=== PATIENT | male | born 1975 | race Asian ===

== ENCOUNTER 2024-04-24 20:10 | Emergency (ER) | payer OTHER, SELFPAY ==
[2024-04-24 20:12] VITALS: BP 155/96
[2024-04-24 20:31] VITALS: BP 139/91
[2024-04-24 21:00] VITALS: BP 134/86
[2024-04-24 22:00] VITALS: BP 137/91
--- NOTE | 2024-04-24 23:06 | ED.GENMED ---
History of Present Illness
<Patricia Devi NP - Last Filed: 04/26/24 20:18>
General
Chief Complaint: Breathing Problem
Source: patient
Exam Limitations: none
Time Seen by Provider: 04/24/24 21:20
Nursing documentation reviewed up to this point in time: agreed with
History of Present Illness
History of Present Illness:
Patient to ED with complaint of SOB x 2 mos. States his blood pressure is high at times, low at times. Feels tired all the time, sleeping more than usual. Denies fever/chills, recent illness. No n/v/d. No cough. Brought to ED by family for
eval.
Past History
<Patricia Devi NP - Last Filed: 04/26/24 20:18>
Past History
ED Past Medical History: Cancer (Kidney), HTN, Hypercholesterolemia, Hypothyroidism and Other (DVT)
ED Past Surgical History: None and Other (partial left nephrectomy 2022)
Social History
Tobacco: Non-smoker
Alcohol: Occasional
Drug: None
Personal:
Living: with family
Employment: Employed
Family History
Family History: Hypertension
Review of Systems
<Patricia Devi NP - Last Filed: 04/26/24 20:18>
Review of Systems
Allergies reviewed?: Yes
All Other Systems: ROS reviewed and negative except as documented in HPI and ROS
Constitutional: Reports fatigue
EENT: Reports no symptoms
Respiratory: Reports trouble breathing
Cardiac: Reports no symptoms
ABD/GI: Reports no symptoms
: Reports no symptoms
Musculoskeletal: Reports no symptoms
Skin: Reports no symptoms
Neurological: Reports no symptoms
Psychiatric: Reports no symptoms
Phy Exam
<Patricia Devi NP - Last Filed: 04/26/24 20:18>
General Physical Exam
General Presentation: well appearing and no apparent distress
General age: appears stated age
General Skin: warm and dry
General Habitus: normal
General Mental: alert
General Hydration: appears well hydrated
Cardiovascular Exam
Cardiovascular Exam: regular rate/rhythm and no edema
Pulmonary Exam
Pulmonary Exam: lungs clear and no respiratory distress
Gastrointestinal Exam
Gastrointestinal Exam: normal bowel sounds and non tender
Musculoskeletal Exam
Musculoskeletal Exam: full ROM and neuro vasc intact
Skin Exam
Skin Exam: normal color, warm/dry and no rash
Psychiatric Exam
Psychiatric Exam: normal mood/affect
Scores
<Patricia Devi ALTERNATIVE ENERGY TECHNICIAN - Last Filed: 04/26/24 20:18>
Heart Failure Risk
Heart Failure Risk Score: Not Applicable
Course
<Patricia Devi ALTERNATIVE ENERGY TECHNICIAN - Last Filed: 04/26/24 20:18>
Orders/Labs/Results
Orders:
Orders
04/24/24 20:12
Electrocardiogram (*1) Urgent
Reason for Study: Shortness of Breath
EKG- Treatment ONCE
04/24/24 23:00
Alcohol Urgent
BNP [NT-proBNP] Urgent
Complete Blood Count/With Diff Urgent
Comprehensive Metabolic Panel Urgent
D-Dimer Urgent
Troponin I Urgent
04/24/24 23:18
CR Chest - 2 Views Urgent
Comment:
Reason For Exam: SOB
04/24/24 23:28
COVID-19 Antigen Urgent
Source: Nasal Swab
04/25/24 00:19
CT Head W/o Iv Contrast Urgent
Comment:
Reason For Exam: mental status change
04/25/24 00:23
Add On- LAB Urgent
Tests Added?: alcohol- quality
Abnormal Lab Results
04/24/24
23:00
WBC 3.1 L 10^3/uL
(4.8-10.8)
RBC 3.67 L 10^6/uL
(4.70-6.10)
Hct 35.6 L %
(39.0-52.0)
MCV 97.0 H fL
(80.0-94.0)
MCH 35.7 H pg
(27.0-31.0)
Abs Immat Gran (auto) 0.1 H 10^3/uL
(0-0.05)
Immature Gran % 1.6 H %
(0-0.5)
Monocytes % 9.7 H %
(1.7-9.3)
Chloride 114 H mmol/L
(98-107)
Carbon Dioxide 15 L mmol/L
(22-30)
Glucose 125 H mg/dl
(70-99)
Total Protein 6.2 L g/dl
(6.3-8.2)
04/24/24 23:00
04/24/24 23:00
Vital Signs
Initial and Last Documented VS:
Initial Vital Signs
Temp Pulse Resp BP Pulse Ox
97.5 F 93 20 155/96 98
04/24/24 20:12 04/24/24 20:12 04/24/24 20:12 04/24/24 20:12 04/24/24 20:12
Last Documented Vital Signs
Temp Pulse Resp BP Pulse Ox
97.5 F 109 13 110/76 86
04/24/24 20:12 04/25/24 00:32 04/24/24 23:15 04/25/24 01:03 04/25/24 00:39
<Yue Moser, DO - Last Filed: 04/25/24 02:23>
Orders/Labs/Results
Orders:
Orders
04/24/24 20:12
Electrocardiogram (*1) Urgent
Reason for Study: Shortness of Breath
EKG- Treatment ONCE
04/24/24 23:00
Alcohol Urgent
BNP [NT-proBNP] Urgent
Complete Blood Count/With Diff Urgent
Comprehensive Metabolic Panel Urgent
D-Dimer Urgent
Troponin I Urgent
04/24/24 23:18
CR Chest - 2 Views Urgent
Comment:
Reason For Exam: SOB
04/24/24 23:28
COVID-19 Antigen Urgent
Source: Nasal Swab
04/25/24 00:19
CT Head W/o Iv Contrast Urgent
Comment:
Reason For Exam: mental status change
04/25/24 00:23
Add On- LAB Urgent
Tests Added?: alcohol- quality
Abnormal Lab Results
04/24/24
23:00
WBC 3.1 L 10^3/uL
(4.8-10.8)
RBC 3.67 L 10^6/uL
(4.70-6.10)
Hct 35.6 L %
(39.0-52.0)
MCV 97.0 H fL
(80.0-94.0)
MCH 35.7 H pg
(27.0-31.0)
Abs Immat Gran (auto) 0.1 H 10^3/uL
(0-0.05)
Immature Gran % 1.6 H %
(0-0.5)
Monocytes % 9.7 H %
(1.7-9.3)
Chloride 114 H mmol/L
(98-107)
Carbon Dioxide 15 L mmol/L
(22-30)
Glucose 125 H mg/dl
(70-99)
Total Protein 6.2 L g/dl
(6.3-8.2)
04/24/24 23:00
04/24/24 23:00
Vital Signs
Initial and Last Documented VS:
Initial Vital Signs
Temp Pulse Resp BP Pulse Ox
97.5 F 93 20 155/96 98
04/24/24 20:12 04/24/24 20:12 04/24/24 20:12 04/24/24 20:12 04/24/24 20:12
Last Documented Vital Signs
Temp Pulse Resp BP Pulse Ox
97.5 F 109 13 110/76 86
04/24/24 20:12 04/25/24 00:32 04/24/24 23:15 04/25/24 01:03 04/25/24 00:39
<Patricia Devi NP - Last Filed: 04/26/24 20:18>
*Critical Care Note
Total Time (30-74mins, 75-104mins- exclusive of procedures): Not Applicable
<Patricia Devi NP - Last Filed: 04/26/24 20:18>
Update Note
Update Note:
Patient AAOx3 on arrival. Able to give full history of current complaint and PMH. Went to room to discuss lab and xray findings. Sleeping but arousable. Now appears confused. He is cooperative but appears impaired. History of daily alcohol use
(vodka). Will check head CT, alcohol level.
ED Attending Note
<Patricia Devi NP - Last Filed: 04/26/24 20:18>
-
Portions of this chart may have been created with voice recognition software.� Occasional wrong word or��sound alike� substitutions may have occurred due to the inherent limitations of voice recognition software.
<Yue Moser DO - Last Filed: 04/25/24 02:23>
ED Attending Note
Patient seen and examined by attending physician: Yes
I performed a history and physical exam of patient and discussed management with resident, I reviewed resident's note and agree with documented findings and plan of care.: Yes
ED Attending Note:
49-year-old gentleman brought to the family with concern for multiple seemingly unrelated complaints all ongoing for a number of months. Admits to daily alcohol consumption.
Patient is awake and alert, easily distracted but oriented x 3. No focal neurodeficits.
Labs are unremarkable. Alcohol level 78.
CT of the head is unremarkable.
Encouraged to discontinue alcohol use, follow-up with PCP.
Discharge Plan
Departure
Patient Disposition: Home (Routine Discharge)
Date of Disposition: 04/25/24
Time of Disposition: 02:22
Patient with high blood pressure during this ER visit?: No
Condition: Good
Covid-19: Not Applicable
Discharge Problem:
Fatigue, KNIGHT (dyspnea on exertion)
Instructions: Fatigue (DC), Shortness of Breath, Adult ED
Prescriptions:
No Action
escitalopram oxalate 10 MG tablet
10 mg PO DAILY@1800 30 Days Qty: 30 0RF
multivitamin 1 EACH tablet
1 ea PO DAILY
apixaban [Eliquis] 5 MG tablet
5 mg PO DIRECTED
melatonin 5 MG tablet
10 mg PO HS 0RF
benzonatate 100 MG capsule
200 mg PO TIDPRN PRN (Reason: Cough) Qty: 15 0RF
metoprolol succinate 25 MG tablet extended release 24 hr
25 mg PO DAILY Qty: 30 0RF
Rx Instructions:
RESUME AFTER FOLLOW UP WITH PCP
Referrals:
Henry Guzman MD [Family Provider] - Tomorrow
Activity Restrictions/Additional Instructions:
Follow up with your family doctor in the AM. Return to the emergency department immediately for any changes in/worsening of your symptoms.
Interventions
Interventions:
*Risk Screen - Suicide Last Done: 08/25/24 23:14
*General Assessment Last Done: 04/24/24 20:12
*Neglect/Abuse Screening Last Done: 04/24/24 23:14
ED- Fall Risk Assessment Last Done: 04/25/24 02:25
*ED COVID-19 Vaccine History Last Done: 04/24/24 23:14
*Nursing Disposition Last Done: 04/25/24 02:25
ED- Cardiac Assessment Last Done: 04/24/24 23:05
ED- Pulmonary Assessment Last Done: 04/24/24 23:05
Discharge Date and Time
Discharge Date/Time: 04/25/24 02:26
Print Language: SLOVAK
[2024-04-24 23:08] LABS: % Basophils 0.6 % (0-2); % Eosinophils 1.6 % (0-6); % Immature Granulocytes 1.6 % (0-0.5); % Lymphocytes 37.1 % (20.5-51.1); % Monocytes 9.7 % (1.7-9.3); % Neutrophils 49.4 % (42.2-75.2); Absolute Eosinophils 0.1 10^3/uL (0-0.7); Absolute Immature Granulocytes 0.1 10^3/uL (0-0.05); Absolute Lymphocytes 1.2 10^3/uL (1.2-3.4); Absolute Monocytes 0.3 10^3/uL (0.1-0.6); Absolute Neutrophils 1.5 10^3/uL (1.4-6.5); Hematocrit 35.6 % (39.0-52.0); Hemoglobin 13.1 g/dL (13.0-18.0); Mean Corp Hgb Conc. 36.8 g/dL (33.0-37.0); Mean Corpuscular Hgb 35.7 pg (27.0-31.0); Mean Platelet Volume 10.2 fL (7.4-10.4); Nucleated Red Blood Cells % 0 % (-); Platelet Count 156 10^3/uL (130-400); Red Blood Cell Count 3.67 10^6/uL (4.70-6.10); Red Cell Dist. Width 13.6 % (11.5-14.5); White Blood Cell Count 3.1 10^3/uL (4.8-10.8)
[2024-04-24 23:10] VITALS: BMI 35.4
[2024-04-24 23:29] LABS: ALT (SGPT) 19 U/L (0-50); AST (SGOT) 32 U/L (17-59); Albumin 4.2 g/dl (3.5-5.0); Alkaline Phosphatase 48 U/L (38-126); Blood Urea Nitrogen 11 mg/dl (9-20); Calcium 9.5 mg/dl (8.4-10.2); Carbon Dioxide 15 mmol/L (22-30); Chloride 114 mmol/L (98-107); Estimated Creatinine Clearance 83 ml/min; Glucose 125 mg/dl (70-99); Potassium 4.6 mmol/L (3.5-5.1); Sodium 144 mmol/L (135-145); Total Bilirubin 0.6 mg/dl (0.2-1.3); Total Protein 6.2 g/dl (6.3-8.2); eGFR > 60.00
[2024-04-24 23:30] LABS: NT-proBNP < 20.0 pg/ml; Troponin I < 0.012 ng/ml
[2024-04-24 23:32] LABS: D-Dimer < 0.27 ug/mlFEU (0.00-0.50)
[2024-04-24 23:44] LABS: COVID-19 Antigen Negative (Negative)
[2024-04-25 01:03] VITALS: BP 110/76
[2024-04-25 01:04] LABS: Alcohol 78 mg/dl
== END 2024-04-25 02:26 | disposition home or self-care (01) ==
LOC: EMR 20:10
PROVIDERS: Nurse Practitioner; Student in an Organized Health Care Education/Training Program; EMERGENCY PHYSICIAN Emergency Medicine; FAMILY PHYSICIAN Internal Medicine
DX: R53.83 Other fatigue (principal); R06.00 Dyspnea, unspecified; I10 Essential (primary) hypertension; E78.00 Pure hypercholesterolemia, unspecified; E03.9 Hypothyroidism, unspecified; Z82.49 Family history of ischemic heart disease and other diseases of the circulatory system; Z85.528 Personal history of other malignant neoplasm of kidney; Z90.5 Acquired absence of kidney
CPT/HCPCS: 99284; 70450; 71046; 80053; 82077; 83880; 84484; 85025; 85379; 87811; 93005